=== PATIENT | female | born 1955 | race Caucasian/White ===

== ENCOUNTER 2016-12-10 13:10 | Emergency (ER) | payer OTHER ==
--- NOTE | ~2016-12-10 | CT2 ---
[facility] A Service of [facility] RADIOLOGY TEXT RESULTS PATIENT: PHAN KOLB LOCATION: SED : 57 UNIT #: [id number] AGE: [address]: Shelbi Coon APRN SEX: F ORDER DR: [id number] [address] [address] [id number] MR#: [id number] Acc #: [id number] NAME: PHAN KOLB : 1955 SEX: F STUDY DATE/TIME: 12/10/2016 14:52 UNIT: SED ROOM: STUDY DESCRIPTION: CT Abd and Pelv W Cont Attending Physician: Shelbi Coon A.P.R.N. Ordering Physician: Shelbi Smith A.P.R.N. MEDICAL IMAGING REPORT This report is preliminary unless electronic signature is present. EXAM CT of the abdomen and pelvis with contrast. INDICATIONS Back pain starting this morning on and off for one week as well as nausea and vomiting. TECHNIQUE Axial CT images were obtained from the dome of the diaphragm through the symphysis pubis following administration of oral and intravenous contrast material. This CT exam was performed with one or more of the following radiation dose reduction techniques: automatic exposure control, adjustment of mA and/or kV according to patient size, and iterative reconstruction. FINDINGS Images through the lung bases are clear other than some minimal scarring versus atelectasis. Bilateral breast implants are noted. The liver appears unremarkable. I do question if there is some mild gallbladder wall edema and patient does have stones within the gallbladder. The spleen is within normal limits as are the adrenal glands and pancreas. Kidneys appear normal. No free fluid or adenopathy is within the abdomen. There is no evidence mechanical bowel obstruction. The patient does have a right ovarian cyst which measures up to 5.5 x 3.3 cm, and there is also a small left ovarian cyst measuring 1.3 x 1.6 cm. Uterus is surgically absent. Urinary bladder appears normal. The patient's appendix is surgically absent. IMPRESSION 1. Patient is noted to have cholelithiasis. I also question if there is [facility] Service of [facility] RADIOLOGY TEXT RESULTS PATIENT: PHAN KOLB LOCATION: [facility] – [place] : 57 UNIT #: [id number] AGE: [address]: Shelbi Coon APRN SEX: F ORDER DR: some mild gallbladder wall edema. Acute cholecystitis is not excluded. Correlation with ultrasound is recommended. 2. This patient has a right ovarian cyst measuring up to 5.5 x 3.3 cm. This is indeterminate but certainly could reflect a benign adnexal cyst, however, given size and patient's age, short-term sonographic followup in 6 weeks is recommended to document resolution or stability. Patient is also noted to have a small left ovarian cyst. 3. Appendix and uterus are surgically absent. Dictated by... Shannon Segovia M.D. THIS IS AN ELECTRONICALLY VERIFIED REPORT Shannon Segovia M.D. at 12/11/2016 6:00 PM SUSU/luis TD: 12/10/2016 22:05 JOB #: [id number] MEDICAL IMAGING REPORT Page 1 of 1
[2016-12-10] MEDS ORDERED: DESYREL50 MG PO (13:19)
[2016-12-10] MEDS ORDERED: AMBIEN10 MG PO (13:19)
[2016-12-10] MEDS ORDERED: PREMARIN1.25 MG PO (13:19)
[2016-12-10] MEDS ORDERED: PROZAC40 M1 PO (13:20)
[2016-12-10] MEDS ORDERED: BUPROPION XL300 M1 PO (13:20)
[2016-12-10 13:49] LABS: BASOPHIL% 0.3 % (0-2.5); EOSINOPHIL# 0.1 X10e3 (0-0.7); EOSINOPHIL% 1.3 % (0.0-7.0); HEMATOCRIT 43.5 % (35.0-45.0); HEMOGLOBIN 14.8 gm/dL (12.0-16.0); LYMPHOCYTE% 25.3 % (17.0-45.0); MEAN CELL VOLUME 90.3 FL (83-96); MEAN CORPUSCULAR HEMOGLOBIN 30.8 PG (28-34); MEAN CORPUSCULAR HGB CONC 34.1 g/dL (30-36); MEAN PLATELET VOLUME 7.5 FL (6.5-11.5); MONOCYTE# 0.7 X10e3 (0-1.0); MONOCYTE% 9.4 % (3.0-12.0); NEUTROPHIL% 63.7 % (40-75); PLATELET COUNT 301 X10e3 (140-420); RED BLOOD COUNT 4.81 X10e (3.90-5.30); RED CELL DISTRIBUTION WIDTH 13.1 % (11.0-15.5); WHITE BLOOD COUNT 7.8 X10e3 (4.0-10.5)
[2016-12-10 13:54] LABS: DIFF IND NO
[2016-12-10 14:18] LABS: BILIRUBIN,TOTAL 1.4 mg/dL (0.2-2.0); BUN/CREATININE RATIO 17.14; CALCIUM SERUM 8.8 mg/dL (8.4-10.2); CREATININE SERUM 0.7 mg/dL (0.6-1.4); GLOM FILT RATE Estimated 94.2 mL/min (>60); POTASSIUM 3.2 mmol/L (3.5-5.1); PROTEIN TOTAL SERUM 7.3 g/dL (6.0-8.3)
[2016-12-10] MEDS ORDERED: TRAMADOL HCL50 M1 PO (19:35)
== END 2016-12-10 19:43 ==
LOC: SED 13:10
PROVIDERS: Nurse Practitioner
DX: K80.00 Calculus of gallbladder with acute cholecystitis without obstruction (principal); N83.201 Unspecified ovarian cyst, right side; Z90.710 Acquired absence of both cervix and uterus; Z90.49 Acquired absence of other specified parts of digestive tract
CPT/HCPCS: 36415; 74177; 80053; 85025; 96361; 96365; 96375; 99285; J2270; J2405; J2543; Q9967